=== PATIENT | female | born 1995 ===

== ENCOUNTER 2024-06-23 10:50 | Outpatient (CLI) | payer OTHER | END 2024-06-23 10:59 | disposition home or self-care (01) | LOC: SONOGRAMA 10:50 | PROVIDERS: ATTEND General Practice | DX: M25.511 Pain in right shoulder (principal); S49.91XA Unspecified injury of right shoulder and upper arm, initial encounter; X58.XXXA Exposure to other specified factors, initial encounter; Y93.9 Activity, unspecified; Y92.9 Unspecified place or not applicable; Y99.9 Unspecified external cause status; R10.2 Pelvic and perineal pain | CPT/HCPCS: 73218 ==